=== PATIENT | male | born 1950 | race Caucasian/White ===

== ENCOUNTER 2023-09-28 16:46 | Outpatient (REF) | payer MEDICARE, SELFPAY ==
--- NOTE | ~2023-09-28 | CT_ITS ---
EXAMINATION: CT HEAD WITHOUT CONTRAST CLINICAL INFORMATION: Mild cognitive impairment COMPARISON: None available. TECHNIQUE: Contiguous axial imaging was performed from the skull base to vertex without intravenous administration of contrast. This CT examination was performed using dose optimization techniques as appropriate, variously including the following: *Automated exposure control *Adjustment of mA and/or kV according to patient size (this includes techniques or standardized protocols for targeted exams where dose is matched to indication/reason for exam; i.e. extremities or head) *Use of iterative reconstruction technique DLP: 1325.71 mGy-cm FINDINGS: Cerebral sulci and cisterns are mildly dilated. There is mild disproportional ventriculomegaly. Bilateral frontal periventricular white matter shows decrease in attenuation There is no midline shift, no abnormal intra- or extra- axial fluid accumulation. Riley and white matter differentiation is normal. Bone window images show no evidence of skull fracture. CT/CT head/brain wo IV con IMPRESSION: 1. 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 2. No intracranial hemorrhage or skull fracture is seen. 3. No evidence of space occupying lesion could be found. 4. The current plain CT scan of the brain shows no diagnostic evidence of acute cerebral infarction.
== END 2023-09-28 16:47 | disposition home or self-care (01) ==
LOC: HO.CT 16:46
PROVIDERS: PCP Internal Medicine; Visit Provider Registered Nurse
DX: G31.84 Mild cognitive impairment of uncertain or unknown etiology (principal)
CPT/HCPCS: 70450

== ENCOUNTER 2023-10-26 12:37 | Outpatient (REF) | payer MEDICARE, SELFPAY ==
--- NOTE | 2023-10-26 12:43 | EEG_ITS ---
FINDINGS: Waking background activity consists of a moderate voltage 9 Hz posterior alpha frequency intermixed anteriorly with low voltage fast frequencies. Photic stimulation and hyperventilation are without activation. No sleep stages are identified. No focal, lateralizing, or paroxysmal discharges are seen. IMPRESSION: This waking EEG is within normal limits. MD CHANDLER Armenta/ARTUR / [id number]
== END 2023-10-26 12:38 | disposition home or self-care (01) ==
LOC: HO.NEURO 12:37
PROVIDERS: PCP Internal Medicine; Visit Provider Registered Nurse
DX: G31.84 Mild cognitive impairment of uncertain or unknown etiology (principal)
CPT/HCPCS: 95816

== ENCOUNTER 2023-11-14 13:56 | Outpatient (REF) | payer MEDICARE, SELFPAY ==
[2023-11-14 14:13] LABS: MANUAL DIFF FLAG NO
[2023-11-14 14:53] LABS: Basophils Absolute Auto 0.1 X10*3/uL (0.0-0.2); Eosinophils Absolute Auto 0.2 X10*3/uL (0.0-0.4); Eosinophils Percent Auto 1.9 % (0-4); Hematocrit 46.6 % (42.0-52.0); Hemoglobin 15.2 g/dl (14.0-18.0); Imm Gran Abs Auto 0.03 X10*3/uL (0.00-0.03); Imm Gran Pct Auto 0.3 % (0.0-0.4); Lymphocytes Absolute Auto 2.5 X10*3/uL (1.2-4.9); Lymphocytes Percent Auto 28.1 % (20-40); Mean Corpuscular HGB Conc 32.6 g/dl (31.0-36.0); Mean Corpuscular Hemoglobin 28.1 pg (27.0-33.0); Mean Corpuscular Volume 86.1 fL (80.0-98.0); Mean Platelet Volume 10.8 fL (9.4-12.4); Monocytes Absolute Auto 0.9 X10*3/uL (0.1-1.2); Monocytes Percent Auto 9.8 % (2-11); Neutrophils Absolute Auto 5.2 x10*3/uL (2.0-8.3); Neutrophils Percent Auto 58.9 % (45-73); Platelet Count 238 X10*3/uL (160-400); Red Blood Count 5.41 X10*6/uL (4.60-5.80); Red Cell Distribution Width 14.2 % (11.0-16.0); White Blood Count 8.8 X10*3/uL (4.8-10.8)
[2023-11-14 15:19] LABS: Anion Gap 10 (12-20); Blood Urea Nitrogen 16 mg/dL (9-16); Calcium 9.3 mg/dL (8.4-10.2); Carbon Dioxide 30 mmol/L (22-29); Chloride 110 mmol/L (96-108); Estimated Glomerular Filt Rate > 60; Glucose Random 151 mg/dL (60-115); Potassium 3.9 mmol/L (3.3-5.1); Sodium 146 mmol/L (135-145)
[2023-11-14 15:35] LABS: T4 Thyroxine 7.6 ug/dL (4.5-12.0); Thyroid Stimulating Hormone 2.82 uIU/mL (0.32-4.0)
[2023-11-14 15:48] LABS: Folate 15.8 ng/mL (> or = 4.0); Vitamin B12 633 pg/mL (200-900)
== END 2023-11-14 13:57 | disposition home or self-care (01) ==
LOC: HO.LAB 13:56
PROVIDERS: Registered Nurse; PCP Internal Medicine; Visit Provider Internal Medicine
DX: G31.84 Mild cognitive impairment of uncertain or unknown etiology (principal)
CPT/HCPCS: 36415; 80048; 82607; 82746; 84436; 84443; 85025

== ENCOUNTER 2025-02-20 13:09 | Outpatient (AMB) | payer MEDICARE, SELFPAY ==
--- NOTE | 2025-02-20 13:10 | A.OFFVIS_ITS ---
Intake Visit Reasons: 6 mo fu Accompanied by: Significant Other Allergies No Known Allergies Allergy (Verified 02/20/25 13:11) Medication List - Last Reconciled 02/20/25 by Breanne Monsivais CNP amlodipine 5 mg PO DAILY carvedilol 12.5 mg PO BID cholecalciferol (vitamin D3) 125 mcg PO DAILY donepezil 10 mg PO DAILY evolocumab (Repatha SureClick) 140 mg subcut Q2W glucagon (Glucagon Emergency Kit) mg IM DIRECTED insulin glargine (Lantus Solostar U-100 Insulin) 45 units subcut BEDTIME insulin lispro (Humalog KwikPen (U-100) Insulin) subcut TID levothyroxine (Synthroid) 112 mcg PO DAILY [id number] 24,000-76,000 -120,000 unit (Creon) caps PO lisinopril 40 mg PO DAILY meclizine 12.5 mg PO Q12H trazodone 50 mg PO BEDTIME HPI Comments Details: Memory was about the same, but could still be forgetful at times. He had some trouble with word recall. He needed reminders to take medication. He was frustrated about amount of medications he was taking and wanted to stop some. Balance was off at times, walking with cane. He slipped in shower in 12/2024, did not hit head. No significant dizziness. He saw milk route supervisor recently who stopped Eliquis. Blood sugar was up and down. It was 131 this afternoon. Sleep was okay. Dizziness began around 2020, where he would feel somewhat lightheaded, unsteady, and off balance for a few seconds when first standing. He has fallen a few times. In 12/2021, he was hospitalized for 3 weeks at [facility] [place] and was transferred to a rehabilitation facility where he tested positive for Covid and was confused. He fell twice. He has no lateralized weakness and numbness. [facility] Medical History (Updated 02/20/25 @ 13:17 by Breanne Monsivais CNP) Hypothyroid Pulmonary embolism Diabetes Hypertension Review of Systems Const Denies chills, Denies daytime sleepiness, Denies difficulty sleeping, Denies fatigue, Denies fever(s), Denies frequent falls, Denies headache(s), Denies increased appetite, Denies poor appetite, Denies snoring, Denies weakness, Denies weight gain and Denies weight loss Eyes Denies loss of vision ENT Denies vertigo, Reports dizziness, Denies headache(s) and Reports neck pain Card Denies chest pain at rest, Denies chest pain with activity, Denies syncope, Denies leg edema, Denies palpitations, Denies dyspnea and Denies dyspnea on exertion Resp Denies cough, Denies dyspnea, Denies dyspnea on exertion and Denies snoring GI Denies abdominal pain, Denies constipation, Denies heartburn, Denies diarrhea and Denies nausea Reports urinary frequency, Denies urinary incontinence and Denies urinary urgency Musc Reports abnormal gait (balance difficulty), Denies back pain, Denies myalgias, Denies arthralgias, Reports neck pain, Denies numbness and Denies tingling Neuro Reports abnormal gait (balance difficulty), Denies vertigo, Reports dizziness, Denies syncope, Denies frequent falls, Denies headache(s), Denies lack of coordination, Denies loss of vision, Reports memory loss, Denies numbness, Denies Other visual disturbances, Denies restless legs, Denies seizure-like activity, Denies tingling, Denies paresthesias, Denies tremor(s) and Denies weakness Psych Denies anxiety, Denies depression, Denies auditory hallucinations, Reports memory loss and Denies visual hallucinations Endo Denies fatigue and Denies palpitations Physical Exam Const Other: General Appearance:? normal, in no acute distress. Heart:? S1, S2 normal, no murmurs. Lungs:? clear anteriorly and posteriorly. Musculoskeletal:? normal. Extremities:? no edema. Psych:? alert, as below. Neuro Other: Abnormal Neurological Findings:?areflexia in BLE. Loss of pinprick below knees. Loss of vibration below ankles. Walking with cane. MMSE 25/30. Mental Status: alert, as below. Cranial Nerves: Pupils are equal, round, and reactive to light. External ocular muscles are intact. Visual miller are full, no ptosis. Face is symmetrical, no facial weakness or droop. Facial sensations are normal. Tongue protrudes in midline. Palate elevates symmetrically. Shoulder shrugging is normal Motor Examination: As above. Sensory Exam: As above. Coordination: No ataxia. No titubation. Gait Exam: With cane. Cerebellar Signs: Kmheby-jq-fitc is okay. Extrapyramidal System: No tremor, rigidity with normal facial expressions. No bradykinesia. No bradyphrenia. Normal arm swing and posture. No propulsion or retropulsion. Speech: Normal. MMSE Level of Consciousness: Alert. Orientation: Knows correct year, month, date, day and season. Knows correct city, county and state. Knows correct location and floor. Registration: Able to register 3 objects. Attention: Serial 7's performed accurately to 93. Recall: Able to recall 2 out of 3 objects. Language: Normal spontaneous speech, fluency, repetition, naming, comprehension, reading, and writing. Total Score: 25/30. Assessment & Plan Assessment & Plan (1) MCI (mild cognitive impairment): Code(s): G31.84 - Mild cognitive impairment of uncertain or unknown etiology Category: Medical Plan: He did not like having to take so many medications and wanted to reduce the amount of medications he was taking. He was taking donepezil 10mg 1 tablet at bedtime. He was educated on the purpose of this medication. If he prefers, may stop medication and see how he does, with option to restart medication again in the future. He was advised to discuss appropriateness of stopping other medications with ordering providers. Stay physically and socially active, continue to use cane. (2) Dizziness: Code(s): R42 - Dizziness and giddiness Category: Medical Plan: Continue meclizine 12.5mg 1 tablet as needed q12h for dizziness. (3) Peripheral neuropathy: Code(s): G62.9 - Polyneuropathy, unspecified Category: Medical Qualifiers: Peripheral neuropathy type: polyneuropathy, unspecified Qualified Code(s): G62.9 - Polyneuropathy, unspecified Plan: Control blood sugar. Stay physically active, use cane. Coding Level of Care Code Est Pt Level 4 (17306) Diagnoses MCI (mild cognitive impairment) G31.84 Dizziness R42 Peripheral polyneuropathy G62.9 Peripheral neuropathy type: polyneuropathy, unspecified
== END 2025-02-20 13:36 | disposition home or self-care (01) ==
PROVIDERS: PCP Internal Medicine; Referring Provider Internal Medicine; Visit Provider Registered Nurse
DX: G31.84 Mild cognitive impairment of uncertain or unknown etiology (principal); R42 Dizziness and giddiness; G62.9 Polyneuropathy, unspecified
CPT/HCPCS: 99214

== ENCOUNTER → 2025-02-20 13:09 | Outpatient (BNVA) | payer MEDICARE, SELFPAY | PROVIDERS: PCP Internal Medicine; Referring Provider Internal Medicine; Visit Provider Registered Nurse | DX: R42 Dizziness and giddiness (principal); G31.84 Mild cognitive impairment of uncertain or unknown etiology; E11.42 Type 2 diabetes mellitus with diabetic polyneuropathy; Z79.4 Long term (current) use of insulin; Z91.81 History of falling; I10 Essential (primary) hypertension | CPT/HCPCS: 99212 ==